=== PATIENT | male | born 1960 | race Caucasian/White ===

== ENCOUNTER 2019-04-22 08:41 | Emergency (ER) | payer OTHER ==
[~2019-04-22] VITALS: Ht 175.3 cm; Wt 52.2 kg
[~2019-04-22 08:41] MED LIST: ALBU90OI INH; ALLO100 PO; ASPI325 PO; BACITO TP; Neurontin 100100 MG PO; OXYACE7.5T PO; Prinivil10 MG PO; TRAZ100 PO; ZOLP10 PO
[2019-04-22] MEDS ORDERED: Prednisone20 MG PO (10:43)
[2019-04-22] MEDS ORDERED: Norco 5-325 Ta1 EACH PO (10:43)
[2019-04-22] MEDS ORDERED: ALBU90OI INH (10:43)
== END 2019-04-22 10:54 | disposition home or self-care (01) ==
LOC: ER 08:41
DX: S20.212A Contusion of left front wall of thorax, initial encounter (principal); J44.1 Chronic obstructive pulmonary disease with (acute) exacerbation; F17.210 Nicotine dependence, cigarettes, uncomplicated; W01.198A Fall on same level from slipping, tripping and stumbling with subsequent striking against other object, initial encounter; Z88.1 Allergy status to other antibiotic agents; I10 Essential (primary) hypertension; Z86.73 Personal history of transient ischemic attack (TIA), and cerebral infarction without residual deficits
CPT/HCPCS: 71046; 94640; 99283-25; A9270-GY; J1100